=== PATIENT | male | born 1950 | race Caucasian/White ===

== ENCOUNTER 2017-11-15 06:09 | Day surgery (SDC) | payer MEDICARE, OTHER ==
[~2017-11-15] VITALS: Ht 175.3 cm; Wt 71.0 kg
[~2017-11-15 06:09] MED LIST: AMLO5; HYDCHL25; HYDMOR2 PO; LISI20; MOME220I; MONT10T; NAPR550 PO; PRAV20
== END 2017-11-15 11:57 | disposition home or self-care (01) ==
LOC: ORSCSDS 06:09
PROVIDERS: Otolaryngology
PROC: 8E09XBZ Computer Assisted Procedure of Head and Neck Region (ICD-10-PCS; principal; 2017-11-15 07:30)
PROC: 09SM4ZZ Reposition Nasal Septum, Percutaneous Endoscopic Approach (ICD-10-PCS; principal; 2017-11-15 07:30)
PROC: 09DU4ZZ Extraction of Right Ethmoid Sinus, Percutaneous Endoscopic Approach (ICD-10-PCS; principal; 2017-11-15 07:30)
PROC: 09DV4ZZ Extraction of Left Ethmoid Sinus, Percutaneous Endoscopic Approach (ICD-10-PCS; principal; 2017-11-15 07:30)
DX: J32.8 Other chronic sinusitis (principal); J34.2 Deviated nasal septum; J34.3 Hypertrophy of nasal turbinates; I10 Essential (primary) hypertension; J45.909 Unspecified asthma, uncomplicated; Z79.899 Other long term (current) drug therapy
CPT/HCPCS: 88305; 88311; C2625; J1100; J1885; J2250; J2405; J2710; J3010; J7120

== ENCOUNTER → 2018-12-13 | Outpatient (CLI) | payer MEDICARE, OTHER ==
[2018-12-13 10:21] LABS: BASOPHILS ABSOLUTE AUTO 0.01 K/mm3 (0.00-0.23); BASOPHILS PERCENT AUTO 0 % (0-2); EOSINOPHILS ABSOLUTE AUTO 0.13 K/mm3 (0.00-0.68); EOSINOPHILS PERCENT AUTO 2 % (0-6); Hematocrit 41.8 % (37.0-53.0); Hemoglobin 14.4 g/dL (13.5-17.5); IMMATURE GRAN ABSOLUTE AUTO 0.03 K/mm3 (0.00-0.10); IMMATURE GRAN PERCENT AUTO 0 % (0-1); LYMPHOCYTES ABSOLUTE AUTO 0.58 K/mm3 (0.84-5.20); LYMPHOCYTES PERCENT AUTO 7 % (21-46); MONOCYTES ABSOLUTE AUTO 0.58 K/mm3 (0.16-1.47); MONOCYTES PERCENT AUTO 7 % (4-13); Mean Corpuscular HGB 31.3 pg (26.0-34.0); Mean Corpuscular HGB Conc 34.4 g/dL (31.5-36.5); Mean Corpuscular Volume 91 fL (80-100); Mean Platelet Volume 10.6 fL (9.1-12.4); NEUTROPHILS ABSOLUTE AUTO 7.43 K/mm3 (1.96-9.15); NEUTROPHILS PERCENT AUTO 85 % (41-73); Platelet Count 193 K/mm3 (150-400); RDW Coefficient Variation 13.1 % (11.7-14.2); White Blood Cell Count 8.76 K/mm3 (4.00-11.30)
[2018-12-13 10:24] LABS: Anion Gap 12 mmol/L (6-16); Blood Urea Nitrogen 25 mg/dL (8-24); Bun/Creatinine Ratio 22.5 (12.0-20.0); CO2, Blood 25 mmol/L (21-32); Calcium, Blood 8.7 mg/dL (8.5-10.1); Chloride, Blood 102 mmol/L (98-108); Creatinine, Blood 1.11 mg/dL (0.60-1.20); Glomerular Filtration Rate >60 (60-); Glucose, Blood 90 mg/dL (70-99); Potassium, Blood 3.4 mmol/L (3.5-5.5); Sodium, Blood 139 mmol/L (136-145)
== END | disposition home or self-care (01) ==
LOC: LAB SHORT 10:17 → LAB EV 10:17
PROVIDERS: Physician Assistant Surgical
DX: R19.7 Diarrhea, unspecified (principal)
CPT/HCPCS: 80048; 85025

== ENCOUNTER 2019-06-27 16:45 | Inpatient (IN) | payer MEDICARE, OTHER ==
[~2019-06-27] VITALS: Ht 175.3 cm; Wt 67.0 kg
[~2019-06-27 16:45] MED LIST changes: -AMLO5; +AMLO5 PO; -LISI20; -PRAV20; +PRAV20 PO; +ZESTORETIC 20-121 EA PO
[2019-06-27] MEDS ORDERED: Cialis5 MG PO (16:55)
[2019-06-27 17:06] LABS: BASOPHILS ABSOLUTE AUTO 0.03 K/mm3 (0.00-0.23); BASOPHILS PERCENT AUTO 0 % (0-2); EOSINOPHILS ABSOLUTE AUTO 0.12 K/mm3 (0.00-0.68); EOSINOPHILS PERCENT AUTO 2 % (0-6); Hematocrit 37.3 % (37.0-53.0); Hemoglobin 12.7 g/dL (13.5-17.5); IMMATURE GRAN ABSOLUTE AUTO 0.08 K/mm3 (0.00-0.10); IMMATURE GRAN PERCENT AUTO 1 % (0-1); LYMPHOCYTES ABSOLUTE AUTO 0.97 K/mm3 (0.84-5.20); LYMPHOCYTES PERCENT AUTO 15 % (21-46); MONOCYTES ABSOLUTE AUTO 0.38 K/mm3 (0.16-1.47); MONOCYTES PERCENT AUTO 6 % (4-13); Mean Corpuscular HGB 31.8 pg (26.0-34.0); Mean Corpuscular Volume 93 fL (80-100); NEUTROPHILS ABSOLUTE AUTO 5.09 K/mm3 (1.96-9.15); NEUTROPHILS PERCENT AUTO 76 % (41-73); Platelet Count 161 K/mm3 (150-400); RDW Standard Deviation 41.3 fL (35.1-46.3); White Blood Cell Count 6.67 K/mm3 (4.00-11.30)
[2019-06-27 17:41] LABS: Alanine Aminotransfer (ALT/SGP 25 U/L (12-78); Albumin, Blood 3.7 g/dL (3.4-5.0); Albumin/Globulin Ratio 1.2 (0.8-1.8); Alk Phos 92 U/L (50-136); Anion Gap 4 mmol/L (6-16); Aspartate Aminotrans (AST/SGOT 21 U/L (12-37); Bilirubin, Total 0.7 mg/dL (0.1-1.0); Blood Urea Nitrogen 18 mg/dL (8-24); Bun/Creatinine Ratio 15.7 (12.0-20.0); CO2, Blood 30 mmol/L (21-32); Calcium, Blood 8.9 mg/dL (8.5-10.1); Chloride, Blood 106 mmol/L (98-108); Creatinine, Blood 1.15 mg/dL (0.60-1.20); Glomerular Filtration Rate >60 (60-); Glucose, Blood 98 mg/dL (70-99); Potassium, Blood 3.7 mmol/L (3.5-5.5); Sodium, Blood 140 mmol/L (136-145); Total Protein, Blood 6.7 g/dL (6.4-8.2)
[2019-06-27] MEDS ORDERED: OMEPRAZOLE20 MG PO (19:08)
--- NOTE | 2019-06-28 05:33 | NUR ---
PT ADMITTED FROM ED AT APPROX 2039 FOR LEFT FEMUR FX. A&O X4. VS WNL. ORTHO CONSULTED. PT NPO.
[2019-06-28 09:20] LABS: International Normalized Ratio 1.04
--- NOTE | 2019-06-28 12:22 | NUR ---
History, Chart, Medications and Allergies reviewed before start of procedure. Lungs clear T/O to Auscultation. Patient confirms NPO status and agrees with scheduled surgery. Pre-Op teaching done. Pt verbalizes understanding. Surgical site prepped with 2% Chlorhexidine cloth wipe.
--- NOTE | 2019-06-28 12:44 | NUR ---
1150 TO DAY SURGERY PER BED
--- NOTE | 2019-06-28 16:54 | NUR ---
1605 RETURNED TO ROOM. LEFT HIP WITH AQUACEL DRESSINGS X2. 1/4 INCH AREA OF BLOODY DRAINAGE VISIBLE ON UPPER DRESSING. PATIENT DENIES NUMBNESS OR TINGLING. PEDAL PULSES INTACT. PATIENT DENIES PAIN OR NAUSEA AT THIS TIME
--- NOTE | 2019-06-28 18:02 | NUR ---
summary PATIENT TOLERATING FOOD AND FLUIDS WITHOUT NAUSEA. PATIENT DECLINES PAIN MEDS AT THIS TIME STATES HAVING LITTLE PAIN. NO INCREASE IN DRAINAGE TO LEFT HIP DRESSINGS. PATIENTS BLOOD PRESSURE LOWER THAN HIS USUAL PRE OP BLOOD PRESSUSRES AND PATIENT DENIES ANY DIZZINESS OR LIGHTHEADEDNESS.
--- NOTE | 2019-06-28 18:05 | NUR ---
1605 ENTERED NOTE AT THIS TIME. PATIENT WITH FAINTLY AUDIBLE HIGH PITCHED SOUNDING INSPIRATORY PHASE OF RESPIRATIONS WHICH PATIENTS REPORTS IS NORMAL RESPIRATIONS FOR PATIENT.
--- NOTE | 2019-06-29 07:10 | NUR ---
SUMMARY MINIMAL DISCOMFORT. AMBULATED WITH 2 ASSIST AND WALKER. TOLERATING PO. VOIDING. HOPING FOR DISCHARGE HOME TODAY.
[2019-06-29] MEDS ORDERED: ASPI325 PO (12:22)
[2019-06-29] MEDS ORDERED: HYDR1TAB94 PO (12:23)
--- NOTE | 2019-06-29 14:22 | NUR ---
DISCHARGE PT PROVIDED WITH WRITTEN AND VERBAL DISCHARGE INSTRUCTIONS. HE REPORTED UNDERSTANDING AFTER QUESTIONS WERE ANSWERED. VSS. PT DENIED SOB AND REPORTED FEELING CONFIDENT WITH DISCHARGE PLAN AND HOME CARE. PT PROVIDED WITH CLEAN DRESSINGS. PT ESCORTED OUT IN W/C BY [facility]GET [facility]ERMAIN.
== END 2019-06-29 14:18 | disposition home or self-care (01) | DRG 482 ==
LOC: ER 16:45 → SURS 18:28 → ER 18:28 → SURS 20:39
PROVIDERS: Emergency Medicine; ADMIT Orthopaedic Surgery
PROC: 0QH706Z Insertion of Intramedullary Internal Fixation Device into Left Upper Femur, Open Approach (ICD-10-PCS; principal; 2019-06-28 13:30)
DX: S72.142A Displaced intertrochanteric fracture of left femur, initial encounter for closed fracture (principal); W19.XXXA Unspecified fall, initial encounter; I10 Essential (primary) hypertension; E78.5 Hyperlipidemia, unspecified; K21.9 Gastro-esophageal reflux disease without esophagitis
CPT/HCPCS: 36415; 71045; 73502; 80053; 85025; 85610; 85730; 90471; 90714; 93005; 93010; 96361; 96374; 96375; 97116; 97161; 97530; 99285-25; C1713; C1769; J0690; J1100; J1170; J1650; J1885; J2405; J2704; J3010; J7030; J7120

== ENCOUNTER → 2019-11-12 | Outpatient (CLI) | payer MEDICARE, OTHER ==
[~2019-11-12] MED LIST changes: +ASPI325 PO; +Cialis5 MG PO; +HYDR1TAB94 PO; +OMEPRAZOLE20 MG PO
== END | disposition home or self-care (01) ==
LOC: PLD 12:10 → LAB SHORT 12:10
DX: L57.0 Actinic keratosis (principal); L73.8 Other specified follicular disorders
CPT/HCPCS: 88305

== ENCOUNTER → 2020-11-23 | Outpatient (CLI) | payer MEDICARE | END | disposition home or self-care (01) | LOC: LAB 11:18 → LAB SHORT 11:18 | DX: D22.5 Melanocytic nevi of trunk (principal) | CPT/HCPCS: 88305 ==

== ENCOUNTER → 2021-08-19 | Outpatient (CLI) | payer MEDICARE, OTHER | END | disposition home or self-care (01) | LOC: LAB SHORT 11:23 | DX: C44.222 Squamous cell carcinoma of skin of right ear and external auricular canal (principal) | CPT/HCPCS: 88305 ==

== ENCOUNTER → 2022-10-03 | Outpatient (CLI) | payer MEDICARE, OTHER | LOC: LAB SHORT 11:02 | DX: L57.0 Actinic keratosis (principal) | CPT/HCPCS: 88305 ==

== ENCOUNTER 2025-01-28 11:18 | Day surgery (SDC) | payer MEDICARE, OTHER ==
[~2025-01-28] VITALS: Ht 175.3 cm; Wt 67.0 kg
[~2025-01-28 11:18] MED LIST changes: +Balanced Salt Epinephrine Irrigation Solution 500 mL IR SCH; +Lidocaine HCl/Pf 1% 5 ML VIAL XX SCH; +Moxifloxacin HCL 0.5 MG/0.1 ML 0.4MLSYR LEFTEYE SCH; +NS 500 ML IV ONE; +PHENYLEPHRINE\\TROPICAMIDE\\TETRACAINE OPHTHALMIC DILATING SOLN LEFTEYE PRN; +Povidone-Iodine 450 DROP/30 ML Solution LEFTEYE SCH; +Povidone-Iodine 450 DROP/30 ML Solution ONE; +Tetracaine HCl/Pf 0.5% Opth Soln 4 ml ONE
[2025-01-28] MEDS ORDERED: NS 1,000 ML IV ONE (11:37)
[2025-01-28] MEDS ORDERED: MEMA5TAB (11:39)
[2025-01-28] MEDS ORDERED: GALA4 (11:40)
[2025-01-28] MEDS ORDERED: FentaNYL Citrate 50 MCG/ML 2 ML Injection ONE (12:01)
[2025-01-28] MEDS ORDERED: Midazolam HCl 1MG / ML 2ML Vial ONE (12:01)
[2025-01-28] MEDS ORDERED: Glycopyrrolate 0.2 MG/ML 5ML VIAL ONE (12:03)
[2025-01-28 12:32] VITALS: BP 127/97
== END 2025-01-28 12:45 | disposition home or self-care (01) ==
LOC: ORSCSDS 11:18
PROVIDERS: Student in an Organized Health Care Education/Training Program
PROC: 08RK3JZ Replacement of Left Lens with Synthetic Substitute, Percutaneous Approach (ICD-10-PCS; principal; 2025-01-28 12:30)
DX: H25.813 Combined forms of age-related cataract, bilateral (principal); H52.202 Unspecified astigmatism, left eye; I10 Essential (primary) hypertension; G47.33 Obstructive sleep apnea (adult) (pediatric); J45.909 Unspecified asthma, uncomplicated; Z79.51 Long term (current) use of inhaled steroids; K21.9 Gastro-esophageal reflux disease without esophagitis; Z79.899 Other long term (current) drug therapy
CPT/HCPCS: J2250; J3010; J7040; V2632

== ENCOUNTER 2025-02-11 10:05 | Day surgery (SDC) | payer MEDICARE, OTHER ==
[~2025-02-11] VITALS: Ht 177.8 cm; Wt 67.1 kg
[~2025-02-11 10:05] MED LIST changes: +Diazepam 5 MG Tab PO PRN; +Diazepam 5 MG Tab PO SCH; +GALA4; +MEMA5TAB; +Midazolam HCl 1MG / ML 2ML Vial ONE; -Moxifloxacin HCL 0.5 MG/0.1 ML 0.4MLSYR LEFTEYE SCH; +Moxifloxacin HCL 0.5 MG/0.1 ML 0.4MLSYR RIGHTEYE SCH; +NS 500 ML ONE; +Ondansetron 4 MG SoluTab MM PRN; -PHENYLEPHRINE\\TROPICAMIDE\\TETRACAINE OPHTHALMIC DILATING SOLN LEFTEYE PRN; +PHENYLEPHRINE\\TROPICAMIDE\\TETRACAINE OPHTHALMIC DILATING SOLN RIGHTEYE PRN; -Povidone-Iodine 450 DROP/30 ML Solution LEFTEYE SCH; +Povidone-Iodine 450 DROP/30 ML Solution RIGHTEYE SCH
[2025-02-11] MEDS ORDERED: NS 500 ML IV ONE (10:31)
--- NOTE | 2025-02-11 10:32 | NUR ---
02/11/25 1032 Lorin Sanz CALL LIGHT WITHIN REACH. TETRACAINE IN RIGHT EYE AT 1027 AND PLEDGETT IN AT 1028
[2025-02-11 12:24] VITALS: BP 150/89
--- NOTE | 2025-02-11 12:25 | NUR ---
02/11/25 1225 Olvin Corbett PT AND INSTRUCTED TO MONITOR B/P AT HOME AND FOLLOW UP WITH PCP. DR. OLIVARES CONSULTED REGARDING VITALS AND APPROVED D/C. PT DENIED CP, DIZZINESS, NAUSEA, WEAKNESS, SOB, AND OTHER CARDIAC SYMPTOMS.
== END 2025-02-11 12:07 | disposition home or self-care (01) ==
LOC: ORSCSDS 10:05
PROVIDERS: Student in an Organized Health Care Education/Training Program
PROC: 08RJ3JZ Replacement of Right Lens with Synthetic Substitute, Percutaneous Approach (ICD-10-PCS; principal; 2025-02-11 11:30)
DX: H25.811 Combined forms of age-related cataract, right eye (principal); Z96.1 Presence of intraocular lens; H52.201 Unspecified astigmatism, right eye; J45.909 Unspecified asthma, uncomplicated; Z79.899 Other long term (current) drug therapy; I10 Essential (primary) hypertension; G47.33 Obstructive sleep apnea (adult) (pediatric); K21.9 Gastro-esophageal reflux disease without esophagitis
CPT/HCPCS: J2250; J7040; V2632